=== PATIENT | female | born 1980 | race Caucasian/White ===

== ENCOUNTER 2017-12-10 18:01 | Emergency (ER) | payer OTHER ==
[~2017-12-10] VITALS: Ht 170.2 cm; Wt 93.6 kg
[~2017-12-10 18:01] MED LIST: CIPRO500 MG PO; FLEXERIL10 MG PO; NAPROXEN500 MG PO
[2017-12-10] MEDS ORDERED: PERCOCET 5/31 TABLET PO (19:26)
[2017-12-10] MEDS ORDERED: MOTRIN800 MG PO (19:26)
[2017-12-10 20:42] VITALS: BP 136/74
== END 2017-12-10 20:43 | disposition home or self-care (01) ==
LOC: EME 18:01
DX: S63.502A Unspecified sprain of left wrist, initial encounter (principal); V89.9XXA Person injured in unspecified vehicle accident, initial encounter; Y92.410 Unspecified street and highway as the place of occurrence of the external cause; J45.909 Unspecified asthma, uncomplicated; Z88.2 Allergy status to sulfonamides
CPT/HCPCS: 73110; 73130; 99281; 99284